=== PATIENT | male | born 1985 | race Caucasian/White ===

== ENCOUNTER 2017-02-26 08:55 | Day surgery (SDC) | payer OTHER ==
[~2017-02-26] VITALS: Ht 167.6 cm; Wt 79.4 kg
[~2017-02-26 08:55] MED LIST: 0.9% Sodium Chloride 1,000 ML IV SCH; ESOM40CA53 PO; Sodium Chloride LOK Flush 10 mL Syringe IV PRN; fentaNYL-PF 50 mCg/mL 2 mL Inj IVPUSH PRN
[2017-02-26 09:12] VITALS: BP 119/74; PULSE 65; RESP 12; O2SAT 98
[2017-02-26] MEDS ORDERED: 0.9% Sodium Chloride 1,000 ML IV ONE (09:39)
[2017-02-26 09:44] VITALS: BP 111/72; PULSE 60; RESP 16; O2SAT 96
[2017-02-26 09:58] VITALS: BP 112/63; PULSE 56; RESP 16; O2SAT 96
--- NOTE | 2017-02-26 10:01 | ENDO ---
[address] [address] ENDOSCOPY PROCEDURE PATIENT: DG PALACIO : 1985 MR#: [id number] ADMIT: 02/26/2017 JOB ID: [id number] CORRECTED REPORT: DATE: 02/26/2017 PROCEDURE: Esophagogastroduodenoscopy. INDICATION: Gastroesophageal reflux. ASA CLASSIFICATION: 1. MALLAMPATI SCORE: 2. MEDICATIONS: Versed 6 mg, fentanyl 150 mcg. INSTRUMENT USED: [id number]. PROCEDURE DETAILS: After informed consent was obtained, the patient was brought into the GI suite, where he was placed on oxygen via nasal cannula and monitored with continuous pulse oximeter, telemetry, and blood pressure monitoring. A time-out was performed. Then, he was placed in a left lateral decubitus position and medications were administered for sedation. A bite block was placed. Standard EGD scope was inserted through the bite block and advanced under direct visualization to the second portion of the duodenum without difficulty. FINDINGS: 1. Normal-appearing duodenal bulb, first and second portion. 2. Normal-appearing pylorus. In the antrum, there was mild erythema suggestive of gastritis. Multiple random biopsies were obtained. The remainder of the gastric exam was otherwise unremarkable. 3. Retroflexed views in the gastric body revealed a normal-appearing cardia and fundus. 4. The GE junction was at 42 cm and appeared regular. Just above the GE junction, the mucosa had a whitish plaque-like appearance. This extended approximately 1.5-2 cm in a circumferential fashion proximally. Multiple random biopsies were obtained. 5. Remainder of the esophagus appeared unremarkable. 6. Multiple random biopsies were obtained in the midesophagus. IMPRESSION: 1. Mild gastritis. 2. Whitish plaques in the distal esophagus suggestive of chronic reflux esophagitis. RECOMMENDATIONS: 1. Await biopsy results. 2. Follow up in GI clinic in 2-4 weeks. COMPLICATIONS: None. ESTIMATED BLOOD LOSS: Less than 5 mL. Corrected by GS 03/02/17 at 2:18pm DOS.
[2017-02-26 10:11] VITALS: BP 109/77; PULSE 58; RESP 16; O2SAT 100
--- NOTE | 2017-02-27 16:49 | PATH ---
SURGICAL PATHOLOGY Attending Physician:Yessi Haile CASE STATUS: Signed Out PATIENT NAME: DG PALACIO PID: [id number] : 1985 DATE COLLECTED:02/26/2017 16:48 SPECIMEN: 1: Esophagus, Biopsy 2: Esophagus, Biopsy 3: Esophagus, Biopsy CLINICAL HISTORY: 1). GASTRIC ESOPHAGUS 2). DISTAL ESOPHAGUS 3). MID ESOPHAGUS FINAL DIAGNOSIS: 1.DESIGNATED "GASTRIC ESOPHAGUS," BIOPSY: GASTRIC BODY-TYPE MUCOSA WITH NO DIAGNOSTIC ABNORMALITY. Negative for Helicobacter organisms. Negative for intestinal metaplasia. Negative for dysplasia and malignancy. 2.DISTAL ESOPHAGUS, BIOPSY: SQUAMOUS MUCOSA WITH FEATURES OF REFLUX ESOPHAGITIS AND GREATER THAN 50 EOSINOPHILS PER 40X HIGH-POWER FIELD (PLEASE SEE COMMENT). 3.MID ESOPHAGUS, BIOPSY: SQUAMOUS EPITHELIUM WITH NO DIAGNOSTIC ABNORMALITY. Intraepithelial eosinophils are not increased. Negative for dysplasia and malignancy. ICD10 R10.13 NOTE: 2. There is significant histologic overlap between reflux esophagitis and eosinophilic esophagitis, particularly in the distal esophagus. That said, greater than 15 eosinophils per high-power field is unusual in reflux esophagitis alone, which raises the possibility of eosinophilic esophagitis in the appropriate clinical and endoscopic setting despite the negative findings in the mid esophageal biopsy. Additionally, PPI responsive esophageal eosinophilia may also be a consideration. GROSS DESCRIPTION: The specimen is received in three formalin filled containers labeled with the patient's name. 1). The specimen is labeled "gastric" and consists of a 0.3 x 0.2 x 0.2 CM portion of tissue which is entirely submitted in cassette 1A. 2). The specimen is labeled "distal esophagus" and consists of portions of tissue which aggregate to 0.3 x 0.2 x 0.2 CM. The specimen is entirely submitted in cassette 2A. 3). The specimen is labeled "mid esophagus" and consists of 2 portions of shoe which aggregate to 0.3 x 0.2 x 0.2 CM. The specimen is entirely submitted in cassette 3A. 02/26/2017DC MICRO DESCRIPTION: See diagnosis. ICD-9 CODES: CPT CODES: 1: 27491 2: 14427 3: 72629 Electronically Signed Out David Noyola MD, Ph.D. [facility]., [address] [place] [address], [place] [address] Technical component performed at [facility], [address], [place], [address]
== END 2017-02-26 23:59 | disposition home or self-care (01) ==
LOC: END 08:55
PROVIDERS: ATTEND Internal Medicine Gastroenterology
DX: K29.70 Gastritis, unspecified, without bleeding (principal); K21.9 Gastro-esophageal reflux disease without esophagitis; Z87.891 Personal history of nicotine dependence
CPT/HCPCS: 43239; G0500; J2250; J3010; J7030